=== PATIENT | female | born 1965 | race Caucasian/White ===

== ENCOUNTER 2024-03-13 06:11 | Day surgery (SDC) | payer OTHER, SELFPAY ==
[2024-03-13 06:20] VITALS: BP 130/77
[2024-03-13] MEDS: NORMOSOL-R 1000 IV (06:38)
[2024-03-13 08:20] VITALS: BP 103/79
[2024-03-13 08:35] VITALS: BP 114/82
[2024-03-13 08:45] VITALS: BP 117/84
== END 2024-03-13 09:01 | disposition home or self-care (01) ==
LOC: SDS 06:11
PROVIDERS: ATTENDING PHYSICIAN Orthopaedic Surgery Hand Surgery
DX: G56.02 Carpal tunnel syndrome, left upper limb (principal)
CPT/HCPCS: 64721